=== PATIENT | female | born 1950 ===

== ENCOUNTER 2016-07-15 17:29 | Emergency (ER) | payer SELFPAY ==
[2016-07-15 17:43] VITALS: TEMP 97.3
[2016-07-15 18:48] LABS: RBC URINE 2 /hpf (0-3); TRANSITIONAL EPITHIAL < 1 /hpf (0-3); URINE BACTERIA RARE (<OCC); URINE BILIRUBIN NEGATIVE (NEGATIVE); URINE BLOOD NEGATIVE (NEGATIVE); URINE COLOR Yellow (YELLOW); URINE GLUCOSE (UA) 3+ mg/dL (Normal); URINE KETONE NEGATIVE (NEGATIVE); URINE LEUKOCYTE ESTERASE 1+ Leu/uL (Negative); URINE PROTEIN NEGATIVE (NEGATIVE); URINE UROBILINOGEN NORMAL mg/dL (0.2-1.0); WBC URINE 7 /hpf (0-5)
--- NOTE | 2016-07-15 19:55 | C.PDOC ---
History Of Present Illness 66 yr old female presents to the ER with complaints of headache and low back pain, gradually developing over the past 8 days. Patient states the pain started after sustaining a mechanical fall, reports slipping and falling backwards on ice and hitting her head. Patient states the pain over lower back is localized and worse with movement. head is intermittent, occipital, " aching ". Patient denies LOC, syncope, denies worse headache of life, visual changes, focal deficits, dizziness, N/V, chest pain, SOB, palpitation, abdominal pain, dysuria, incontinence, saddle anesthesia, denies deformity, weakness, sensory or vascular deficits to B/L UEs and LEs. Ambulate to Ed for evaluation, not in any apparent distress. Time Seen by Provider: 07/15/16 18:14 Chief Complaint (Nursing): Back Pain History Per: Patient History/Exam Limitations: no limitations Onset/Duration Of Symptoms: Gradual (8 days ago) Current Symptoms Are (Timing): Still Present Past Medical History Reviewed: Historical Data, Nursing Documentation, Vital Signs Vital Signs: Last Vital Signs Temp 97.3 F L 07/15/16 17:39 Pulse 108 H 07/15/16 17:39 Resp 20 07/15/16 17:39 BP 124/86 07/15/16 17:39 Pulse Ox 97 07/15/16 20:46 - Medical History PMH: Diabetes, HTN, Hypercholesterolemia, Hyperlipidemia, Kidney Stones Family History: States: No Known Family Hx - Social History Hx Tobacco Use: No Hx Alcohol Use: No Hx Substance Use: No - Immunization History Hx Tetanus Toxoid Vaccination: No Hx Influenza Vaccination: No Hx Pneumococcal Vaccination: No Review Of Systems Except As Marked, All Systems Reviewed And Found Negative. Constitutional: Negative for: Fever Eyes: Negative for: Vision Change Cardiovascular: Negative for: Chest Pain Respiratory: Negative for: Shortness of Breath Gastrointestinal: Negative for: Abdominal Pain Genitourinary: Negative for: Incontinence Musculoskeletal: Positive for: Back Pain (Low back pain ) Neurological: Positive for: Headache. Negative for: Weakness, Numbness Physical Exam - Physical Exam Appears: Well, Non-toxic, No Acute Distress Skin: Warm, Dry, No Rash Head: Atraumatic, Normacephalic, No Tenderness, No Swelling, No Abrasion Eye(s): bilateral: Normal Inspection Ear(s): Bilateral: Normal Nose: Normal Oral Mucosa: Moist Tongue: Normal Appearing Throat: Normal, No Erythema, No Exudate, No Drooling Neck: Normal, Normal ROM, No Midline Cervical Tenderness, No Paracervical Tenderness, No Step Off Deformity, Supple Chest: Symmetrical, No Tenderness Cardiovascular: Rhythm Regular, No Murmur Respiratory: Normal Breath Sounds, No Stridor, No Wheezing Gastrointestinal/Abdominal: Normal Exam, Soft, No Tenderness, No Distention, No Guarding Back: No CVA Tenderness, No Vertebral Tenderness, Decreased ROM (of l-spine due to pain), No Muscle Spasm, Paraspinal Tenderness (Diffuse Lumbar paraspinal tenderness. No ecchymoses, no midline tenderness.) Extremity: Normal ROM, Tenderness (trace ecchymoses over left forearm.), No Deformity, No Swelling Neurological/Psych: Oriented x3, Normal Speech, Normal Cognition, Normal Motor, Normal Sensation, Normal Reflexes ED Course And Treatment O2 Sat by Pulse Oximetry: 97 Pulse Ox Interpretation: Normal - CT Scan/US CT - Cervical Spine Other Rad Studies (CT/US): Read By Radiologist, Radiology Report Reviewed CT/US Interpretation: EXAM: CT Cervical Spine Without Intravenous Contrast. CLINICAL HISTORY: 66 years old, female; Injury or trauma; Fall; Initial encounter; Abrasion. TECHNIQUE: Axial computed tomography images of the cervical spine without intravenous contrast. This CT. exam was performed using one or more of the following dose reduction techniques: automated. exposure control, adjustment of the mA and/or kV according to patient size, and/or use of iterative. reconstruction technique. Coronal and sagittal reformatted images were created and reviewed. EXAM DATE/TIME: Exam ordered 07/15/2016 6:59 PM. COMPARISON: No relevant prior studies available. FINDINGS: Vertebrae: Unremarkable. No acute fracture. Discs/spinal canal/neural foramina: Slight anterior subluxation C4-C5 and C5-C6 both of uncertain. age and etiology. Degenerative disc disease and facet arthritis at multiple levels in the cervical spine. Soft tissues: Unremarkable. Sinuses: Membrane thickening in the maxillary sinuses. Mastoid air cells: Fluid in the mastoid air cells on the right. Lung apices: Unremarkable as visualized. IMPRESSION: No acute fracture. Slight anterior subluxation C4-C5 and C5-C6 both of uncertain age and etiology. Degenerative change CT - Head Other Rad Studies (CT/US): Read By Radiologist, Radiology Report Reviewed CT/US Interpretation: EXAM: CT Head Without Intravenous Contrast. CLINICAL HISTORY: 66 years old, female; Injury or trauma; Fall; Initial encounter; Abrasion; Forehead. TECHNIQUE: Axial computed tomography images of the head/ brain without intravenous contrast. This CT exam. was performed using one or more of the following dose reduction techniques: automated exposure. control, adjustment of the mA and/or kV according to patient size, and/or use of iterative. reconstruction technique. EXAM DATE/TIME: 07/15/2016 6:59 PM. COMPARISON: Prior images are not available for review. Correlation is made with report dated 08/11/13. FINDINGS: Brain: Ventricles are normal in size and configuration. There is no midline shift. There are no intraaxial. or extra- axial mass lesions or areas of hemorrhage. Streak artifact limits evaluation of the. posterior fossa. There are no abnormal fluid collections. Carmona-white differentiation is maintained. Ventricles: See above. Bones: Cranial vault is intact. Soft tissues: unremarkable. Sinuses: There is mild mucoperiosteal thickening in the sinuses. Ears and mastoids: There is an old right mastoidectomy defect. Left middle ear and mastoid are. unremarkable. Orbits: Orbital contents are unremarkable. IMPRESSION: No acute intracranial abnormality CT - Lumbar Spine Other Rad Studies (CT/US): Read By Radiologist, Radiology Report Reviewed CT/US Interpretation: EXAM: CT Lumbar Spine Without Intravenous Contrast. CLINICAL HISTORY: 66 years old, female; Injury or trauma; Fall; Initial encounter; Abrasion. TECHNIQUE: Axial computed tomography images of the lumbar spine without intravenous contrast. This CT exam. was performed using one or more of the following dose reduction techniques: automated exposure. control, adjustment of the mA and/or kV according to patient size, and/or use of iterative. reconstruction technique. Coronal and sagittal reformatted images were created and reviewed. EXAM DATE/TIME: 07/15/2016 6:59 PM. COMPARISON: There are no prior studies for comparison. FINDINGS: Vertebrae, Discs/spinal canal/neural foramina: 5 lumbar vertebral bodies are normal in height and. alignment. Vertebral bodies and posterior elements are intact. There is mild disc space narrowing. posteriorly T12-L1, L1/L2, L2/L3 and L5/ S1. There is vacuum phenomenon at L5/S1. There is mild. disc bulging at L4/L5 and L5/S1. There degenerative osteophytes at all levels. Sacroiliac joints are. patent. There are no sacral fractures. Bony mineralization is normal. Soft tissues: There are vascular calcifications. There is a fat containing right inguinal hernia. There. are no acute retroperitoneal abnormalities. IMPRESSION : Degenerative change, no fracture Progress Note: On re-evaluation, pt is afebrile, hemodynamiclay stable. NOn- toxic. Ambulatory n ED with stable gait. neurologicaly intact. Imaging review and appears without acute findings. Pt has clinical findings c/w head injury, lower back strain s/p mechanical fall. Pt advised. ref. to f/u with PMD In 2- 3 days for re-eval. return to ED if any worsening or new changes. Medical Decision Making Medical Decision Making: PLAN: * CT - Cervical Spine, Chest, Head, Lumbar Spine * Urinalysis * Tramadol PO * Valium PO Disposition Counseled Patient/Family Regarding: Studies Performed, Diagnosis, Need For Followup, Rx Given - Disposition Referrals: [facility] [Outside] Disposition: HOME/ ROUTINE Disposition Time: 20:47 Condition: STABLE Additional Instructions: Light duty to lower back Take pain medication as prescribed Follow up with PMD in 2-3 days for re-eavluation. Return to ED if any worsening or new changes. Prescriptions: Methocarbamol [Robaxin] 500 mg PO TID #14 tab traMADol [Ultram] 50 mg PO TID #7 tab Instructions: Head Injury (ED), Back Pain (ED) Print Language: CITIZEN OF [place] - Clinical Impression Clinical Impression: Low back strain, Head injury - PA / [employer] SPECIALIST / Resident Statement MD/DO has reviewed & agrees with the documentation as recorded. - Scribe Statement The provider has reviewed the documentation as recorded by the Scribe Nita Harris All medical record entries made by the Keri were at my direction and personally dictated by me. I have reviewed the chart and agree that the record accurately reflects my personal performance of the history, physical exam, medical decision making, and the department course for this patient. I have also personally directed, reviewed, and agree with the discharge instructions and disposition.
--- NOTE | 2016-07-15 20:35 | CT ---
EXAM: CT Head Without Intravenous Contrast. CLINICAL HISTORY: 66 years old, female; Injury or trauma; Fall; Initial encounter; Abrasion; Forehead TECHNIQUE: Axial computed tomography images of the head/brain without intravenous contrast. This CT exam was performed using one or more of the following dose reduction techniques: automated exposure control, adjustment of the mA and/or kV according to patient size, and/or use of iterative reconstruction technique. EXAM DATE/TIME: 07/15/2016 6:59 PM COMPARISON: Prior images are not available for review. Correlation is made with report dated 08/11/13 FINDINGS: Brain: Ventricles are normal in size and configuration. There is no midline shift. There are no intra-axial or extra-axial mass lesions or areas of hemorrhage. Streak artifact limits evaluation of the posterior fossa. There are no abnormal fluid collections. Carmona-white differentiation is maintained. Ventricles: See above. Bones: Cranial vault is intact. Soft tissues: unremarkable Sinuses: There is mild mucoperiosteal thickening in the sinuses Ears and mastoids: There is an old right mastoidectomy defect. Left middle ear and mastoid are unremarkable. Orbits: Orbital contents are unremarkable. IMPRESSION: No acute intracranial abnormality
--- NOTE | 2016-07-15 20:41 | CT ---
EXAM: CT Lumbar Spine Without Intravenous Contrast. CLINICAL HISTORY: 66 years old, female; Injury or trauma; Fall; Initial encounter; Abrasion TECHNIQUE: Axial computed tomography images of the lumbar spine without intravenous contrast. This CT exam was performed using one or more of the following dose reduction techniques: automated exposure control, adjustment of the mA and/or kV according to patient size, and/or use of iterative reconstruction technique. Coronal and sagittal reformatted images were created and reviewed. EXAM DATE/TIME: 07/15/2016 6:59 PM COMPARISON: There are no prior studies for comparison. FINDINGS: Vertebrae, Discs/spinal canal/neural foramina: 5 lumbar vertebral bodies are normal in height and alignment. Vertebral bodies and posterior elements are intact. There is mild disc space narrowing posteriorly T12-L1, L1/L2, L2/L3 and L5/S1. There is vacuum phenomenon at L5/S1. There is mild disc bulging at L4/L5 and L5/S1. There degenerative osteophytes at all levels. Sacroiliac joints are patent. There are no sacral fractures. Bony mineralization is normal. Soft tissues: There are vascular calcifications. There is a fat containing right inguinal hernia. There are no acute retroperitoneal abnormalities. IMPRESSION: Degenerative change, no fracture
[2016-07-15 20:55] VITALS: BP 137/80; PULSE 78; RESP 16
[2016-07-15 20:58] VITALS: O2SAT 97
--- NOTE | 2016-07-16 13:27 | CT ---
PROCEDURE: CT Cervical Spine without contrast HISTORY: <INJURY> COMPARISON: None available. TECHNIQUE: Axial computed tomography images were obtained of the cervical spine without the use of intravenous contrast. Coronal and sagittal reformatted images were created and reviewed. Radiation dose: Total exam DLP = NA. FINDINGS: VERTEBRAE: No acute compression fractures nor retropulsed fragments. Vertebral bodies exhibit relatively normal stature aside from mild multilevel fish-mouth endplate deformities. Straightening of the normal cervical lordosis which may be in part due to patient positioning in the gantry however underlying element of mild muscle spasm may contribute DISCS/SPINAL CANAL/NEURAL FORAMINA: At the C2-C3 level, there is minimal degenerative squaring of the uncovertebral joints. Facets also slightly hypertrophic left greater than right. Central canal and exit foramina are adequate. At the C3-C4 level, no disc herniation or significant disc bulge. Minimal degenerative squaring of the uncovertebral joints. Facets are hypertrophic left greater than right. Left exit foramen is marginal. Right exit foramen is adequate. At the C4-C5 level, there is minor disc degenerative squaring of the uncovertebral joints. Right facet is quite hypertrophic with right-sided foraminal stenosis. Left exit foramen is mildly hypertrophic. PARASPINAL SOFT TISSUES: The prevertebral and paraspinal soft tissues unremarkable. OTHER FINDINGS: Lung apices are clear. No evidence of apical pneumothorax. IMPRESSION: No acute fractures. Minor multilevel degenerative spondylosis of the cervical spine next
== END 2016-07-15 20:54 | disposition home or self-care (01) ==
LOC: C.ER 17:29
DX: S39.012A Strain of muscle, fascia and tendon of lower back, initial encounter (principal); S09.90XA Unspecified injury of head, initial encounter; W00.0XXA Fall on same level due to ice and snow, initial encounter

== ENCOUNTER 2017-04-27 11:15 | Emergency (ER) | payer MEDICARE ==
[2017-04-27] MEDS ORDERED: Sodium Chloride 0.9% 1,000 ML IV ONE (12:03)
[2017-04-27 12:23] LABS: BASO # 0.1 K/uL (0.0-0.2); EOS # 0.1 K/uL (0.0-0.7); EOS % 2.3 % (0.0-4.0); HEMOGLOBIN 12.5 g/dL (11.0-16.0); LYMPH # 1.4 K/uL (1.0-4.3); LYMPH % 27.2 % (20.0-40.0); MEAN CORPUSCULAR HEMOGLOBIN 30.4 pg (27.0-31.0); MEAN CORPUSCULAR HGB CONC 34.2 g/dL (33.0-37.0); MEAN PLATELET VOLUME 10.2 fL (7.2-11.7); MONO # 0.4 K/uL (0.0-0.8); MONO % 8.2 % (0.0-10.0); NEUT # 3.1 K/uL (1.8-7.0); NEUT % 61.3 % (50.0-75.0); RBC 4.11 Mil/uL (3.80-5.20); RED CELL DISTRIBUTION WIDTH 13.9 % (11.5-14.5)
--- NOTE | 2017-04-27 12:28 | C.PDOC ---
History Of Present Illness 66 y/o female presents to ED with complaints of epigastric abdominal pain for 3 days with associated nausea, vomiting and diarrhea. Patient denies fever, chills , recent travel, back pain or any other complaints at this time. Time Seen by Provider: 04/27/17 11:57 Chief Complaint (Nursing): Abdominal Pain History Per: Patient History/Exam Limitations: no limitations Onset/Duration Of Symptoms: Days Current Symptoms Are (Timing): Still Present Location Of Pain/Discomfort: Epigastric Past Medical History Reviewed: Historical Data, Nursing Documentation, Vital Signs Vital Signs: Last Vital Signs Temp 97.7 F 04/27/17 16:54 Pulse 60 04/27/17 16:54 Resp 20 04/27/17 16:54 BP 131/85 04/27/17 16:54 Pulse Ox 100 04/27/17 16:54 - Medical History PMH: Diabetes, HTN, Hypercholesterolemia, Hyperlipidemia, Kidney Stones Surgical History: No Surg Hx Family History: States: No Known Family Hx - Social History Hx Tobacco Use: No Hx Alcohol Use: No Hx Substance Use: No - Immunization History Hx Tetanus Toxoid Vaccination: No Hx Influenza Vaccination: No Hx Pneumococcal Vaccination: No Review Of Systems Constitutional: Negative for: Fever, Chills Gastrointestinal: Positive for: Nausea, Vomiting, Abdominal Pain, Diarrhea Genitourinary: Negative for: Dysuria, Hematuria Musculoskeletal: Negative for: Back Pain Skin: Negative for: Rash Physical Exam - Physical Exam Appears: Non-toxic, No Acute Distress Skin: Normal Color, Warm, Dry, No Rash Head: Atraumatic, Normacephalic Oral Mucosa: Moist Neck: Supple Cardiovascular: Rhythm Regular Respiratory: Normal Breath Sounds, No Rales, No Rhonchi, No Wheezing Gastrointestinal/Abdominal: Soft, Tenderness (Epigastric), No Guarding, No Rebound Back: No CVA Tenderness Extremity: Normal ROM, Capillary Refill (<2 seconds) Neurological/Psych: Oriented x3 ED Course And Treatment - Laboratory Results Result Diagrams: 04/27/17 12:20 04/27/17 12:20 ECG: Interpreted By Me, Viewed By Me ECG Rhythm: Sinus Rhythm Rate From EC (bpm) O2 Sat by Pulse Oximetry: 97 (RA) Pulse Ox Interpretation: Normal Medical Decision Making Medical Decision Making: ro gastrtiris pancreatitis pud - labs imaging pending during ed course pt had pain migration to lower abd. additional ct neg. after ct , pt asking for dc, pain improved. labs unremarkable. advise outpt fu and return precautions Disposition - Disposition Referrals: Lance Brown MD [Staff Provider] - [facility] [Outside] [facility] [Outside] [facility] [Outside] Disposition: HOME/ ROUTINE Disposition Time: 16:15 Condition: STABLE Additional Instructions: please follow up with your doctor/clinic and specialist.return to er with worsening symptoms or concerns. Prescriptions: Famotidine [Pepcid] 20 mg PO DAILY #20 tab Instructions: Acute Abdominal Pain (DC) Forms: [employer] (Malaysian) - Clinical Impression Clinical Impression: Abdominal pain - Scribe Statement The provider has reviewed the documentation as recorded by the Scriblinsey Mo All medical record entries made by the Liliamibe were at my direction and personally dictated by me. I have reviewed the chart and agree that the record accurately reflects my personal performance of the history, physical exam, medical decision making, and the department course for this patient. I have also personally directed, reviewed, and agree with the discharge instructions and disposition.
[2017-04-27 12:30] LABS: INR 1.1
[2017-04-27 12:37] LABS: ALB/GLOB RATIO 1.1 (1.0-2.1); ALBUMIN 3.6 g/dL (3.5-5.0); ALT/SGPT 31 U/L (9-52); AST/SGOT 22 U/L (14-36); BLOOD UREA NITROGEN 11 mg/dL (7-17); CALCIUM 7.8 mg/dl (8.6-10.4); GFR AFRICAN-AMERICAN > 60; GFR NON-AFRICAN AMERICAN > 60; LIPASE 99 U/L (23-300)
[2017-04-27 12:38] LABS: BILIRUBIN,DIRECT 0.3 mg/dL (0.0-0.4)
[2017-04-27 12:42] LABS: SQUAMOUS EPITHIAL 1 /hpf (0-5); URINE BILIRUBIN NEGATIVE (NEGATIVE); URINE BLOOD NEGATIVE (NEGATIVE); URINE CLARITY Clear (Clear); URINE COLOR Yellow (YELLOW); URINE GLUCOSE (UA) 2+ mg/dL (Normal); URINE LEUKOCYTE ESTERASE TRACE Leu/uL (Negative); URINE NITRATE NEGATIVE (NEGATIVE); URINE PROTEIN NEGATIVE (NEGATIVE)
--- NOTE | 2017-04-27 14:06 | US ---
HISTORY: upper abd pain COMPARISON: CT abdomen and pelvis with contrast performed 01/26/17 TECHNIQUE: Sonographic evaluation of the abdomen. FINDINGS: LIVER: Measures 15.7 cm in sagittal dimension. Echogenic liver may be seen in setting of hepatic parenchymal disease or fatty infiltration. No focal hepatic mass identified. The main portal vein appears patent with normal directional flow. No intrahepatic bile duct dilatation. GALLBLADDER: No gallstones. No gallbladder wall thickening. Negative sonographic Patel's sign as assessed by the real estate sales manager. COMMON BILE DUCT: Measures 4 mm. PANCREAS: Not well visualized. RIGHT KIDNEY: Measures 12.2 x 5.8 x 6.1cm. Mild hydronephrosis versus parapelvic cysts. No obstructing calculus identified. 1.3 x 1.4 x 1.4 cm midpole cyst. LEFT KIDNEY: Measures 12.2 x 6.8 x 6.4cm. Mild hydronephrosis versus parapelvic cysts. No obstructing calculus evident. SPLEEN: Measures approximately 10.2 cm. AORTA: Limited views appear unremarkable. IVC: Limited views appear unremarkable. OTHER FINDINGS: None. IMPRESSION: Mild bilateral hydronephrosis versus parapelvic cysts. 1.4 cm right renal cyst, midpole. Echogenic liver may be seen in setting of hepatic parenchymal disease or fatty infiltration.
[2017-04-27] MEDS ORDERED: Iodixanol 320 MG/ML 100 ML BOTTLE IV ONE (15:35)
--- NOTE | 2017-04-27 16:11 | CT ---
PROCEDURE: CT Abdomen and Pelvis with contrast HISTORY: abd pain COMPARISON: 03/28/2017 CT abdomen and pelvis TECHNIQUE: Contrast dose: 100 mL Visipaque 320 Radiation dose: Total exam DLP = 1025 mGy-cm. This CT exam was performed using one or more of the following dose reduction techniques: Automated exposure control, adjustment of the mA and/or kV according to patient size, and/or use of iterative reconstruction technique. FINDINGS: LOWER THORAX: Left basal in lingular interval pleural thickening LIVER: Unremarkable. No gross lesion or ductal dilatation. GALLBLADDER AND BILE DUCTS: Unremarkable. PANCREAS: Unremarkable. No gross lesion or ductal dilatation. SPLEEN: Unremarkable. ADRENALS: Unremarkable. No mass. KIDNEYS AND URETERS: Symmetrical renal function appear No hydronephrosis. No solid appearing mass. Bilateral parapelvic renal cysts similar-appearing right lower renal pole cortical 1.6 cm cystic appearing mass in similar to 01/26/2017 VASCULATURE: Unremarkable. No aortic aneurysm. BOWEL: Rectosigmoid redundant colon. No obstruction. No gross mural thickening. No diverticular light is seen no prominent diverticulosis noted. Few scattered diverticuli not excluded APPENDIX: Normal appendix. PERITONEUM: Unremarkable. No free fluid. No free air. LYMPH NODES: Unremarkable. No enlarged lymph nodes. BLADDER: Unremarkable. REPRODUCTIVE: Postmenopausal appearing uterus. Ovaries within normal limits- appearing dystrophic calcification of the left ovary noted -similar-appearing BONES: No acute fracture. Thoraco lumbar spondylosis OTHER FINDINGS: Anterior umbilical fat only containing hernia (4.2 x 4.4 cm) - umbilical neck 1.5 cm wide Smaller bilateral fat only containing groin hernias right larger than left ; 2.5 x 1.6 cm on the right -similar-appearing IMPRESSION: No acute abdominal bowel appreciated. No mechanical obstruction appreciated Fat only containing hernias -similar-appearing - largest is umbilical ; 2nd largest right groin Similar bilateral parapelvic renal cysts. Right lower renal pole intra cortical benign-appearing cyst -also similar appear .
[2017-04-27 16:54] VITALS: BP 131/85; PULSE 60; RESP 20; TEMP 97.7
[2017-04-27 17:44] VITALS: O2SAT 97
== END 2017-04-27 16:54 | disposition home or self-care (01) ==
LOC: C.ER 11:15
DX: R10.13 Epigastric pain (principal)
CPT/HCPCS: 74177; 76700; 80053; 81001; 82248; 83690; 84484; 85025; 85610; 85730; 96361; 96374; 96375; 99284; C9113; J2405; J7040; Q9967

== ENCOUNTER 2017-05-19 15:09 | Inpatient (IN) | payer MEDICARE ==
--- NOTE | 2017-05-19 16:17 | C.PDOC ---
History Of Present Illness 66 year old female presents to the ED c/o pain in her left upper arm radiating into her chest. Pain has been intermittent and shes describes it as aching and occasionally very intense. Patient states she is not working at this time, but even when she exerts herself at home the pain does not change. Patient denies SOB, nausea, vomit, diaphoresis. Patient states she has never had this type of pain before. She did not take any medication at home. Time Seen by Provider: 05/19/17 15:52 Chief Complaint (Nursing): Chest Pain History Per: Patient History/Exam Limitations: no limitations Onset/Duration Of Symptoms: Days Current Symptoms Are (Timing): Still Present Quality: Aching Modifying Factors: None Exacerbating Factors: None Alleviating Factors: None Recent travel outside of the [place]: No Additional History Per: Patient Past Medical History Reviewed: Historical Data, Nursing Documentation, Vital Signs Vital Signs: Last Vital Signs Temp 98.6 F 05/19/17 15:40 Pulse 65 05/19/17 17:53 Resp 18 05/19/17 17:53 BP 118/63 05/19/17 17:53 Pulse Ox 99 05/19/17 17:53 - Medical History PMH: Diabetes, HTN, Hypercholesterolemia, Hyperlipidemia, Kidney Stones Surgical History: No Surg Hx Family History: States: Unknown Family Hx - Social History Hx Tobacco Use: No Hx Alcohol Use: No Hx Substance Use: No - Immunization History Hx Tetanus Toxoid Vaccination: No Hx Influenza Vaccination: Yes Hx Pneumococcal Vaccination: Yes Review Of Systems Constitutional: Negative for: Fever, Chills Cardiovascular: Positive for: Chest Pain. Negative for: Palpitations Respiratory: Negative for: Cough, Shortness of Breath Gastrointestinal: Negative for: Nausea, Vomiting, Abdominal Pain Musculoskeletal: Positive for: Arm Pain. Negative for: Back Pain Skin: Negative for: Rash Neurological: Negative for: Weakness, Numbness, Headache, Dizziness Physical Exam - Physical Exam Appears: Non-toxic, No Acute Distress Skin: Normal Color, Warm, Dry Head: Atraumatic, Normacephalic Eye(s): bilateral: Normal Inspection Nose: No Discharge, No Deformity Oral Mucosa: Moist Neck: Normal ROM, Supple Chest: Symmetrical, Tenderness (left pectoralis muscle on palpation), Other ( breast exam in normal) Cardiovascular: Rhythm Regular, No Murmur Respiratory: Normal Breath Sounds, No Rales, No Rhonchi, No Wheezing Gastrointestinal/Abdominal: Soft, No Tenderness, No Guarding, No Rebound Extremity: Normal ROM, No Pedal Edema, No Calf Tenderness, No Deformity, No Swelling Neurological/Psych: Oriented x3, Normal Speech, Normal Cognition Gait: Steady ED Course And Treatment - Laboratory Results Result Diagrams: 05/19/17 16:36 05/19/17 16:16 Lab Interpretation: Abnormal (BUN 36 Cr 2.6 elevated when cocmpared to priors.) ECG: Interpreted By Me ECG Rhythm: Sinus Rhythm ECG Interpretation: Normal O2 Sat by Pulse Oximetry: 99 (On RA) Pulse Ox Interpretation: Normal - Radiology CXR: Viewed By Me, Read By Radiologist CXR Interpretation: Yes: No Acute Disease Reevaluation Time: 18:24 Reassessment Condition: Unchanged - Physician Consult Information Time Consulting Physician Contacted: 18:24 Physician Contacted: Yoana Cox Outcome Of Conversation: Patient to be admitted to telemetry for chest pain and new onset renal insufficiency Medical Decision Making Medical Decision Making: Impression : upper arm and chest pain Plan: * EKG * Labs * CXR Disposition - Disposition Disposition: HOSPITALIZED Disposition Time: 18:24 Condition: STABLE - POA Present On Arrival: None - Clinical Impression Clinical Impression: Chest pain, Renal insufficiency - Scribe Statement The provider has reviewed the documentation as recorded by the Scribe Vasyl Escudero All medical record entries made by the Scribe were at my direction and personally dictated by me. I have reviewed the chart and agree that the record accurately reflects my personal performance of the history, physical exam, medical decision making, and the department course for this patient. I have also personally directed, reviewed, and agree with the discharge instructions and disposition.
[2017-05-19 16:37] LABS: ALBUMIN 3.4 g/dL (3.5-5.0); CALCIUM 8.2 mg/dl (8.6-10.4)
[2017-05-19 16:42] LABS: BASO # 0.1 K/uL (0.0-0.2); BASO % 1.2 % (0.0-2.0); EOS # 0.1 K/uL (0.0-0.7); EOS % 1.3 % (0.0-4.0); HEMOGLOBIN 12.5 g/dL (11.0-16.0); LYMPH # 1.9 K/uL (1.0-4.3); LYMPH % 25.1 % (20.0-40.0); MEAN CELL VOLUME 90.4 fL (81.0-99.0); MEAN CORPUSCULAR HEMOGLOBIN 29.8 pg (27.0-31.0); MEAN PLATELET VOLUME 9.9 fL (7.2-11.7); MONO # 0.4 K/uL (0.0-0.8); MONO % 5.5 % (0.0-10.0); NEUT % 66.9 % (50.0-75.0); RBC 4.18 Mil/uL (3.80-5.20); RED CELL DISTRIBUTION WIDTH 14.2 % (11.5-14.5); WHITE BLOOD COUNT 7.5 K/uL (4.8-10.8)
[2017-05-19 16:46] LABS: TROPONIN I 0.029 ng/mL (0.00-0.120)
--- NOTE | 2017-05-19 17:38 | RAD ---
PROCEDURE: CHEST RADIOGRAPH, 1 VIEW HISTORY: chest pain COMPARISON: 08/11/2013 FINDINGS: LUNGS: Clear. PLEURA: No pneumothorax or pleural fluid seen. CARDIOVASCULAR: Normal. OSSEOUS STRUCTURES: No significant abnormalities. VISUALIZED UPPER ABDOMEN: Normal. OTHER FINDINGS: None. IMPRESSION: No active disease.
--- NOTE | 2017-05-19 20:42 | CP.PCM.HP ---
History of Present Illness - History of Present Illness History of Present Illness: 66 year old female presents to the ED c/o pain in her left upper arm radiating into her chest. Pain has been intermittent and shes describes it as aching and occasionally very intense. Patient states when she exerts herself at home the pain does not change. Patient denies SOB, nausea, vomit, diaphoresis. Patient states she has never had this type of pain before. She did not take any medication at home. Time Seen by Provider: 05/19/17 15:52 Present on Admission - Present on Admission Any Indicators Present on Admission: No Review of Systems - Constitutional Constitutional: absent: As Per HPI, Anorexia, Chills, Daytime Sleepiness, Excessive Sweating, Fatigue, Fever, Frequent Falls, Headache, Increased Appetite , Lethargy, Malaise, Night Sweats, Snoring, Sleep Apnea, Weight Gain, Weight Loss, Weakness, Other - EENT Eyes: absent: As Per HPI, Blind Spots, Blurred Vision, Change in Vision, Decreased Night Vision, Diplopia, Discharge, Dry Eye, Exophthalmos, Floaters, Irritation, Itchy Eyes, Loss of Peripheral Vision, Pain, Photophobia, Requires Corrective Lenses, Sees Flashes, Spots in Vision, Tunnel Vision, Other Visual Disturbances, Loss of Vision, Other Ears: absent: As Per HPI, Decreased Hearing, Ear Discharge, Ear Pain, Tinnitus, Abnormal Hearing, Disequilibrium, Dizziness, Other Nose/Mouth/Throat: absent: As Per HPI, Epistaxis, Nasal Congestion, Nasal Discharge, Nasal Obstruction, Nasal Trauma, Nose Pain, Post Nasal Drip, Sinus Pain, Sinus Pressure, Bleeding Gums, Change in Voice, Dental Pain, Dry Mouth, Dysphagia, Halitosis, Hoarsness, Lip Swelling, Mouth Lesions, Mouth Pain, Odynophagia, Sore Throat, Throat Swelling, Tongue Swelling, Facial Pain, Neck Pain, Neck Mass, Other - Breasts Breasts: absent: As Per HPI, Change in Shape, Mass, Pain, Nipple Discharge, Nipple Inversion, Skin Changes, Swelling, Other - Cardiovascular Cardiovascular: Chest Pain at Rest, Chest Pain with Activity, Dyspnea, Lightheadedness, Orthopnea, Palpitations - Respiratory Respiratory: absent: As Per HPI, Cough, Dyspnea, Hemoptysis, Dyspnea on Exertion , Wheezing, Snoring, Stridor, Pain on Inspiration, Chest Congestion, Excessive Mucous Production, Change in Mucous Color, Pain with Coughing, Other - Gastrointestinal Gastrointestinal: absent: As Per HPI, Abdominal Pain, Belching, Bloating, Change in Bowel Habits, Change in Stool Character, Coffee Ground Emesis, Constipation, Cramping, Diarrhea, Dyspepsia, Dysphagia, Early Satiety, Excessive Flatus, Fecal Incontinence, Heartburn, Hematemesis, Hematochezia, Loose Stools, Melena, Nausea, Odynophagia, Temesmus, Vomiting, Other - Genitourinary Genitourinary: absent: As Per HPI, Change in Urinary Stream, Difficulty Urinating, Dysuria, Flank Pain, Hematuria, Pyuria, Nocturia, Urinary Incontinence, Urinary Frequency, Urinary Hesitance, Urinary Urgency, Voiding Freq/Small Amts, Freq UTI, Hx Renal/Bladder Calculi, Hx /Renal Surgery, Bladder Distension, Other - Musculoskeletal Musculoskeletal: absent: As Per HPI, Abnormal Gait, Arthralgias, Atrophy, Back Pain, Deformity, Joint Swelling, Limited Range of Motion, Loss of Height, Muscle Cramps, Muscle Weakness, Myalgias, Neck Pain, Numbness, Radiating Pain into Limb, Stiffness, Tingling, Other - Integumentary Integumentary: absent: As Per HPI, Acne, Alopecia, Bleeding Lesions, Change in Hair, Change in Nails, Change in Pigmentation, Changing Lesions, Dry Skin, Erythema, Furuncle, Hirsutism, Lesions, New Lesions, Non-Healing Lesions, Photosensitivity, Pruritus, Rash, Skin Pain, Skin Ulcer, Sores, Striae, Swelling , Unusual Bruising, Wounds, Jaundice, Other - Neurological Neurological: absent: As Per HPI, Abnormal Gait, Abnormal Hearing, Abnormal Movements, Abnormal Speech, Behavioral Changes, Burning Sensations, Confusion, Convulsions, Disequilibrium, Dizziness, Numbness, Focal Weakness, Frequent Falls , Headaches, Lack of Coordination, Loss of Vision, Memory Loss, Paresthesias, Radicular Pain, Restless Legs, Sensory Deficit, Syncope, Tingling, Tremor, Vertigo, Weakness, Other Visual Disturbances, Other - Psychiatric Psychiatric: absent: As Per HPI, Abnormal Sleep Pattern, Anhedonia, Anxiety, Auditory Hallucinations, Behavioral Changes, Change in Appetite, Change in Libido, Confusion, Depression, Difficulty Concentrating, Hallucinations, Homicidal Ideation, Hopelessness, Irritability, Memory Loss, Mood Swings, Panic Attacks, Paranoia, Suicidal Ideation, Visual Hallucinations, Tactile Hallucinations, Other - Endocrine Endocrine: absent: As Per HPI, Change in Body Appearance, Change in Libido, Cold Intolorance, Deepening of Voice, Excessive Sweating, Fatigue, Flushing, Heat Intolorance, Increase in Ring/Shoe/Hat Size, Palpitations, Polydipsia, Polyphagia, Polyuria, Other Past Patient History - Past Medical History & Family History Past Medical History?: Yes - Past Social History Smoking Status: Never Smoked - CARDIAC Hx Hypercholesterolemia: Yes Hx Hypertension: Yes - PULMONARY Hx Respiratory Disorders: No - NEUROLOGICAL Hx Neurological Disorder: No Other/Comment: viral meningitis 2001. - HEENT Hx HEENT Problems: No Other/Comment: ear surgery post infection twice - RENAL Hx Kidney Stones: Yes - ENDOCRINE/METABOLIC Hx Endocrine Disorders: Yes Hx Diabetes Mellitus Type 2: Yes - HEMATOLOGICAL/ONCOLOGICAL Hx Blood Disorders: No - INTEGUMENTARY Hx Dermatological Problems: No - MUSCULOSKELETAL/RHEUMATOLOGICAL Hx Musculoskeletal Disorders: No Hx Falls: No - GASTROINTESTINAL Hx Gastrointestinal Disorders: No - GENITOURINARY/GYNECOLOGICAL Hx Genitourinary Disorders: No - PSYCHIATRIC Hx Substance Use: No - SURGICAL HISTORY Hx Surgeries: No Other/Comment: accidentally stabbed self with kitchen knife trying to open a can had surgery to remove metal pieces in 1998. had ear surger after infection twice in - ANESTHESIA Hx Anesthesia: Yes Hx Anesthesia Reactions: No Hx Malignant Hyperthermia: No Meds Allergies/Adverse Reactions: Allergies Allergy/AdvReac Type Severity Reaction Status Date / Time No Known Allergies Allergy Verified 05/19/17 15:43 Physical Exam - Head Exam Head Exam: ATRAUMATIC - Eye Exam Eye Exam: EOMI, Normal appearance, PERRL Pupil Exam: NORMAL ACCOMODATION, PERRL - ENT Exam ENT Exam: Mucous Membranes Moist, Normal Exam - Neck Exam Neck exam: Positive for: Normal Inspection - Respiratory Exam Respiratory Exam: Clear to Auscultation Bilateral, NORMAL BREATHING PATTERN - Cardiovascular Exam Cardiovascular Exam: +S1, +S2, +S4 - GI/Abdominal Exam GI & Abdominal Exam: Normal Bowel Sounds, Soft. absent: Tenderness - Extremities Exam Extremities exam: Positive for: normal inspection. Negative for: calf tenderness - Back Exam Back exam: NORMAL INSPECTION - Neurological Exam Neurological exam: Alert, CN II-XII Intact, Normal Gait, Oriented x3, Reflexes Normal - Skin Skin Exam: Dry, Intact, Normal Color, Warm Results - Vital Signs Recent Vital Signs: Last Vital Signs Temp 98.6 F 05/19/17 15:40 Pulse 65 05/19/17 17:53 Resp 18 05/19/17 17:53 BP 118/63 05/19/17 17:53 Pulse Ox 99 05/19/17 18:33 - Labs Result Diagrams: 05/19/17 16:36 05/19/17 16:16 Labs: Laboratory Results - last 24 hr 05/19/17 05/19/17 16:16 16:36 WBC 7.5 RBC 4.18 Hgb 12.5 Hct 37.8 MCV 90.4 MCH 29.8 MCHC 33.0 RDW 14.2 Plt Count 259 MPV 9.9 Neut % (Auto) 66.9 Lymph % (Auto) 25.1 Dubois % (Auto) 5.5 Eos % (Auto) 1.3 Baso % (Auto) 1.2 Neut # 5.0 Lymph # 1.9 Dubois # 0.4 Eos # 0.1 Baso # 0.1 Sodium 133 Potassium 4.0 Chloride 102 Carbon Dioxide 22 Anion Gap 14 BUN 36 H Creatinine 2.6 H Est GFR ( Amer) 22 Est GFR (Non-Af Amer) 18 Random Glucose 115 H Calcium 8.2 L Total Bilirubin 0.8 AST 28 ALT 18 Alkaline Phosphatase 53 Troponin I 0.0290 Total Protein 6.8 Albumin 3.4 L Globulin 3.4 Albumin/Globulin Ratio 1.0 Assessment & Plan (1) Chest pain Status: Acute Comment: cardiac w/u (2) Renal insufficiency Status: Acute Comment: iv fluids
[2017-05-19 21:43] LABS: CK-MB 0.36 ng/mL (0.0-3.38)
[2017-05-19] MEDS: (Novolin R) Insulin Human Regular 100 units/ml vial SC SCH (22:05)
[2017-05-20 06:05] LABS: BASO # 0.1 K/uL (0.0-0.2); BASO % 0.8 % (0.0-2.0); EOS # 0.2 K/uL (0.0-0.7); EOS % 2.1 % (0.0-4.0); HEMOGLOBIN 11.9 g/dL (11.0-16.0); LYMPH # 2.6 K/uL (1.0-4.3); LYMPH % 34.2 % (20.0-40.0); MEAN CELL VOLUME 89.5 fL (81.0-99.0); MEAN CORPUSCULAR HEMOGLOBIN 30.1 pg (27.0-31.0); MEAN CORPUSCULAR HGB CONC 33.6 g/dL (33.0-37.0); MEAN PLATELET VOLUME 10.6 fL (7.2-11.7); MONO # 0.5 K/uL (0.0-0.8); MONO % 6.9 % (0.0-10.0); NEUT # 4.3 K/uL (1.8-7.0); NRBC % 0.2 % (0.0-2.0); RBC 3.97 Mil/uL (3.80-5.20); RED CELL DISTRIBUTION WIDTH 13.7 % (11.5-14.5); WHITE BLOOD COUNT 7.6 K/uL (4.8-10.8)
[2017-05-20 06:26] LABS: ALB/GLOB RATIO 1.1 (1.0-2.1); ALBUMIN 3.4 g/dL (3.5-5.0); ALT/SGPT 23 U/L (9-52); AST/SGOT 19 U/L (14-36); BLOOD UREA NITROGEN 14 mg/dL (7-17); CALCIUM 9.1 mg/dl (8.6-10.4); GFR AFRICAN-AMERICAN > 60; GFR NON-AFRICAN AMERICAN > 60
[2017-05-20 06:33] LABS: CK-MB 0.29 ng/mL (0.0-3.38)
[2017-05-20] MEDS: (Novolin R) Insulin Human Regular 100 units/ml vial SC SCH ×3 (08:13→16:59)
[2017-05-20 08:20] VITALS: RESP 20
[2017-05-20] MEDS: Enoxaparin 40 mg Syringe SC SCH (11:00)
--- NOTE | 2017-05-20 12:38 | CARD ---
APPROVED REPORT EKG Measurement Heart [id number] <Conclusion> Normal sinus rhythm Normal ECG
--- NOTE | 2017-05-20 13:40 | CP.PCM.PN ---
Subjective - Date & Time of Evaluation Date of Evaluation: 05/20/17 Time of Evaluation: 13:39 - Subjective Subjective: CHIEF COMPLAINTS TODAY : NO FURTHER CP ROS. HEENT : N. Resp : No cough, wheezing ,pleuritic CP ,or hemoptysis Cardio : No anginal CP, PND, orthopnea, palpitation GI : No abd.pain, n/v ,diarrhea or GI bleeding . [employer] COORDINATOR : No headache, vertigo, focal deficit. Musculoskel : No joint swelling , Derm : No rash Psych : Normal affect. Ext : No swelling ,calf pain PE. Pt. is alert awake in no distress. V.S As noted in the chart Head ,ear nose,throat and eyes : Normal. Neck : Supple with normal carotids. Lungs: Clear air entry. Heart : S1 & S2 normal with S4. No murmur. Abd : Soft non tender with normal bowel sounds. Neuro : Moves all ext. with no localized deficit. Ext : No edema with intact pulses.Non tender calves Derm : No rashes or decubitus ulcer. LABS/RADIOLOGY: CHECK TNI ASSESSMENT/PLAN : CONT OBSERVATION Objective - Vital Signs/Intake and Output Vital Signs (last 24 hours): Temp Pulse Resp BP Pulse Ox 97.5 F L 67 20 129/85 96 05/20/17 07:19 05/20/17 12:11 05/20/17 07:19 05/20/17 11:00 05/20/17 07:19 - Medications Medications: Current Medications Aspirin (Aspirin Chewable) 81 mg PO DAILY [facility] Last Admin: 05/20/17 11:00 Dose: 81 mg Enoxaparin Sodium (Lovenox) 40 mg SC DAILY [facility] Last Admin: 05/20/17 11:00 Dose: 40 mg Famotidine (Pepcid) 20 mg PO DAILY [facility] Last Admin: 05/20/17 11:00 Dose: 20 mg Insulin Human Regular (Novolin R) 0 unit SC [facility] PRN Reason: Protocol Last Admin: 05/20/17 11:49 Dose: Not Given Lisinopril (Zestril) 10 mg PO DAILY [facility] Last Admin: 05/20/17 11:00 Dose: 10 mg Pneumococcal Polyvalent Vaccine (Pneumovax 23 Vaccine) 0.5 ml IM .ONCE ONE Stop: 05/22/17 10:01 Rosuvastatin Calcium (Crestor) 20 mg PO [facility] Last Admin: 05/19/17 22:05 Dose: 20 mg - Labs Labs: 05/20/17 06:01 05/20/17 06:01 Assessment and Plan (1) Chest pain Status: Acute (2) Renal insufficiency Status: Acute
[2017-05-20 14:40] LABS: CK-MB 0.49 ng/mL (0.0-3.38)
--- NOTE | 2017-05-20 20:54 | CARD ---
APPROVED REPORT EKG Measurement Heart [id number] <Conclusion> Normal sinus rhythm Normal ECG
[2017-05-21] MEDS: (Novolin R) Insulin Human Regular 100 units/ml vial SC SCH ×2 (07:58→12:30)
[2017-05-21] MEDS: Enoxaparin 40 mg Syringe SC SCH (10:10)
[2017-05-21 12:48] LABS: BLOOD UREA NITROGEN 16 mg/dL (7-17); CALCIUM 9.6 mg/dl (8.6-10.4); GFR AFRICAN-AMERICAN > 60; GFR NON-AFRICAN AMERICAN > 60
[2017-05-21 12:49] LABS: BASO # 0.1 K/uL (0.0-0.2); BASO % 0.7 % (0.0-2.0); EOS # 0.1 K/uL (0.0-0.7); EOS % 1.7 % (0.0-4.0); HEMOGLOBIN 12.6 g/dL (11.0-16.0); LYMPH # 1.7 K/uL (1.0-4.3); LYMPH % 25.5 % (20.0-40.0); MEAN CELL VOLUME 89.2 fL (81.0-99.0); MEAN CORPUSCULAR HEMOGLOBIN 30.8 pg (27.0-31.0); MEAN CORPUSCULAR HGB CONC 34.5 g/dL (33.0-37.0); MEAN PLATELET VOLUME 11.1 fL (7.2-11.7); MONO # 0.4 K/uL (0.0-0.8); MONO % 5.5 % (0.0-10.0); NEUT # 4.5 K/uL (1.8-7.0); NEUT % 66.6 % (50.0-75.0); NRBC % 0.1 % (0.0-2.0); RBC 4.11 Mil/uL (3.80-5.20); RED CELL DISTRIBUTION WIDTH 13.6 % (11.5-14.5); WHITE BLOOD COUNT 6.8 K/uL (4.8-10.8)
--- NOTE | 2017-05-21 13:41 | CP.PCM.DIS ---
Provider - Provider Date of Admission: 05/19/17 18:20 Attending physician: Yoana Cox MD Time Spent in preparation of Discharge (in minutes): 35 Diagnosis - Discharge Diagnosis (1) Chest pain Status: Acute (2) Renal insufficiency Status: Acute Hospital Course - Lab Results Lab Results: Most Recent Lab Values WBC 6.8 K/uL (4.8-10.8) 05/21/17 12:22 RBC 4.11 Mil/uL (3.80-5.20) 05/21/17 12:22 Hgb 12.6 g/dL (11.0-16.0) 05/21/17 12:22 Hct 36.7 % (34.0-47.0) 05/21/17 12:22 MCV 89.2 fL (81.0-99.0) 05/21/17 12:22 MCH 30.8 pg (27.0-31.0) 05/21/17 12:22 MCHC 34.5 g/dL (33.0-37.0) 05/21/17 12:22 RDW 13.6 % (11.5-14.5) 05/21/17 12:22 Plt Count 240 K/uL (130-400) 05/21/17 12:22 MPV 11.1 fL (7.2-11.7) 05/21/17 12:22 Neut % (Auto) 66.6 % (50.0-75.0) 05/21/17 12:22 Lymph % (Auto) 25.5 % (20.0-40.0) 05/21/17 12:22 Hickman % (Auto) 5.5 % (0.0-10.0) 05/21/17 12:22 Eos % (Auto) 1.7 % (0.0-4.0) 05/21/17 12:22 Baso % (Auto) 0.7 % (0.0-2.0) 05/21/17 12:22 Neut # 4.5 K/uL (1.8-7.0) 05/21/17 12:22 Lymph # 1.7 K/uL (1.0-4.3) 05/21/17 12:22 Hickman # 0.4 K/uL (0.0-0.8) 05/21/17 12:22 Eos # 0.1 K/uL (0.0-0.7) 05/21/17 12:22 Baso # 0.1 K/uL (0.0-0.2) 05/21/17 12:22 Sodium 135 mmol/L (132-148) 05/21/17 12:22 Potassium 4.0 mmol/L (3.6-5.2) 05/21/17 12:22 Chloride 102 mmol/L (98-107) 05/21/17 12:22 Carbon Dioxide 24 mmol/L (22-30) 05/21/17 12:22 Anion Gap 13 (10-20) 05/21/17 12:22 BUN 16 mg/dL (7-17) 05/21/17 12:22 Creatinine 0.5 mg/dL (0.7-1.2) L 05/21/17 12:22 Est GFR ( Amer) > 60 05/21/17 12:22 Est GFR (Non-Af Amer) > 60 05/21/17 12:22 POC Glucose (mg/dL) 119 mg/dL (65-110) H 05/21/17 11:56 Random Glucose 125 mg/dL (65-105) H 05/21/17 12:22 Calcium 9.6 mg/dl (8.6-10.4) 05/21/17 12:22 Total Bilirubin 0.5 mg/dL (0.2-1.3) 05/20/17 06:01 AST 19 U/L (14-36) 05/20/17 06:01 ALT 23 U/L (9-52) 05/20/17 06:01 Alkaline Phosphatase 81 U/L (38-126) 05/20/17 06:01 Total Creatine Kinase 49 U/L (30-135) 05/20/17 13:59 CK-MB (Mass) 0.49 ng/mL (0.0-3.38) 05/20/17 13:59 Troponin I < 0.0120 ng/mL (0.00-0.120) 05/20/17 13:59 Total Protein 6.4 g/dL (6.3-8.3) 05/20/17 06:01 Albumin 3.4 g/dL (3.5-5.0) L 05/20/17 06:01 Globulin 3.0 gm/dL (2.2-3.9) 05/20/17 06:01 Albumin/Globulin Ratio 1.1 (1.0-2.1) 05/20/17 06:01 - Hospital Course Hospital Course: 6 year old female presents to the ED c/o pain in her left upper arm radiating into her chest. Pain has been intermittent and shes describes it as aching and occasionally very intense. Patient states when she exerts herself at home the pain does not change. Patient denies SOB, nausea, vomit, diaphoresis. Patient states she has never had this type of pain before. She did not take any medication at home. TNI NEG TIMES 3 . PT WAS ANXIOUS TO GO HOME WILL D/C AND CONT, OUT PT CARDIAC W/U RX ASA Discharge Exam - Head Exam Head Exam: ATRAUMATIC Discharge Plan - Follow Up Plan Condition: STABLE Disposition: HOME/ ROUTINE
[2017-05-21 16:20] VITALS: BP 113/77; PULSE 79; TEMP 99; O2SAT 96
[2017-05-22] MEDS ORDERED: Pneumococcal 23-Valent Vaccine IM ONE (10:00)
== END 2017-05-21 17:29 | disposition home or self-care (01) | DRG 313 ==
LOC: C.ER 15:09 → C.9E 18:20 → C.6T 22:45
PROVIDERS: ADMIT Internal Medicine Cardiovascular Disease; ATTEND Internal Medicine Cardiovascular Disease
DX: R07.9 Chest pain, unspecified (principal); E11.9 Type 2 diabetes mellitus without complications; N28.9 Disorder of kidney and ureter, unspecified; E78.00 Pure hypercholesterolemia, unspecified; I10 Essential (primary) hypertension; Z79.4 Long term (current) use of insulin

== ENCOUNTER 2017-07-28 06:07 | Emergency (ER) | payer MEDICARE ==
[2017-07-28 06:17] VITALS: O2SAT 98
--- NOTE | 2017-07-28 07:30 | C.PDOC ---
History Of Present Illness 67 y/o female presents to ED with complaints of right sided back pain, buttock pain and abdominal pain for 4 days. Patient states she has taken Motrin with no relief which prompted visit to ED and currently denies fever, chills, nausea, vomiting, diarrhea, dysuria, hematuria or any other complaints at this time. Time Seen by Provider: 07/28/17 07:18 Chief Complaint (Nursing): Back Pain History Per: Patient History/Exam Limitations: no limitations Onset/Duration Of Symptoms: Days Quality Of Discomfort: "Pain" Past Medical History Reviewed: Historical Data, Nursing Documentation, Vital Signs Vital Signs: Last Vital Signs Temp 97.7 F 07/28/17 09:30 Pulse 62 07/28/17 09:30 Resp 16 07/28/17 09:30 BP 106/65 07/28/17 09:30 Pulse Ox 98 07/28/17 10:13 - Medical History PMH: Diabetes, HTN, Hypercholesterolemia, Hyperlipidemia, Kidney Stones, Chronic Kidney Disease Surgical History: No Surg Hx Family History: States: No Known Family Hx - Social History Hx Tobacco Use: No Hx Alcohol Use: No Hx Substance Use: No - Immunization History Hx Tetanus Toxoid Vaccination: Yes Hx Influenza Vaccination: Yes Hx Pneumococcal Vaccination: Yes Review Of Systems Constitutional: Negative for: Fever, Chills Cardiovascular: Negative for: Chest Pain Gastrointestinal: Positive for: Abdominal Pain. Negative for: Nausea, Vomiting , Diarrhea Genitourinary: Negative for: Dysuria, Hematuria Musculoskeletal: Positive for: Back Pain Physical Exam - Physical Exam Appears: Non-toxic, No Acute Distress Skin: Warm, Dry, No Rash Head: Atraumatic, Normacephalic Oral Mucosa: Moist Neck: Normal ROM, Supple Cardiovascular: Rhythm Regular Respiratory: Normal Breath Sounds, No Rales, No Rhonchi, No Wheezing Gastrointestinal/Abdominal: Soft, Tenderness (lower abdomen), No Guarding, No Rebound Back: No CVA Tenderness, Paraspinal Tenderness, No Straight Leg Raising Extremity: Normal ROM, No Calf Tenderness, Capillary Refill (<2 seconds) Neurological/Psych: Oriented x3, Normal Speech, Normal Motor, Normal Sensation Gait: Steady ED Course And Treatment - Laboratory Results Result Diagrams: 07/28/17 07:49 07/28/17 07:49 Lab Interpretation: Normal O2 Sat by Pulse Oximetry: 98 (RA) Pulse Ox Interpretation: Normal - CT Scan/US No standard instances Other Rad Studies (CT/US): Read By Radiologist, Radiology Report Reviewed CT/US Interpretation: FINDINGS: LOWER THORAX: Basilar atelectasis. Heart size normal. Coronary arterial and valvular calcifications. LIVER: Scattered hepatic punctate calcification. No gross lesion or ductal dilatation. GALLBLADDER AND BILE DUCTS: Unremarkable. PANCREAS: Unremarkable. No gross lesion or ductal dilatation. SPLEEN: Scattered punctate calcifications. ADRENALS: Unremarkable. No mass. KIDNEYS AND URETERS: Punctate nonobstructing right upper pole calculus. No hydronephrosis. Bilateral parapelvic cysts, stable mild nonspecific perinephric stranding No solid mass. VASCULATURE: Unremarkable. No aortic aneurysm. BOWEL: Small hiatal hernia. No obstruction. No gross mural thickening. APPENDIX: Unremarkable. Normal appendix. PERITONEUM: Stable fat containing umbilical hernia. No free fluid. No free air. LYMPH NODES: Unremarkable. No enlarged lymph nodes. BLADDER: Unremarkable. REPRODUCTIVE: Unremarkable. BONES: No acute fracture. OTHER FINDINGS: None. IMPRESSION: Punctate nonobstructive right upper pole calculus. No obstructive urolithiasis or evidence of recently passed genitourinary calculus. Additional stable findings as above. Progress Note: CT Scan, Blood work and UA ordered. Toradol,Oxycodone and IV fluids administered. On re-evaluation sleeping in no distress. Abdomen soft Reassessment Condition: Improved Disposition Counseled Patient/Family Regarding: Studies Performed, Diagnosis, Need For Followup, Rx Given - Disposition Referrals: [facility] [Outside] [facility] [Outside] Disposition: HOME/ ROUTINE Disposition Time: 09:50 Condition: STABLE Additional Instructions: Follow up with PMD for further evaluation Prescriptions: Naproxen [Naprosyn] 1 tab PO BID PRN #25 tab PRN Reason: Pain Instructions: Acute Abdomen (Belly Pain), Adult (DC) Forms: [email or web address] ([place]) - POA Present On Arrival: None - Clinical Impression Clinical Impression: Low back pain, Back pain - 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 - Scribe Statement The provider has reviewed the documentation as recorded by the Keri Mo All medical record entries made by the Liliamiblinsey were at my direction and personally dictated by me. I have reviewed the chart and agree that the record accurately reflects my personal performance of the history, physical exam, medical decision making, and the department course for this patient. I have also personally directed, reviewed, and agree with the discharge instructions and disposition.
[2017-07-28] MEDS ORDERED: Oxycodone/Acetaminophen 5/325 mg Tab ONE (07:35)
[2017-07-28] MEDS ORDERED: Sodium Chloride 0.9% 1,000 ML ONE (07:35)
[2017-07-28] MEDS: Oxycodone/Acetaminophen 5/325 mg Tab PO STA (07:40)
[2017-07-28] MEDS: Sodium Chloride 0.9% 1,000 ML IV ONE (07:40)
[2017-07-28 07:55] LABS: BASO # 0.1 K/uL (0.0-0.2); BASO % 1.3 % (0.0-2.0); EOS # 0.2 K/uL (0.0-0.7); EOS % 2.7 % (0.0-4.0); HEMOGLOBIN 12.4 g/dL (11.0-16.0); LYMPH # 1.8 K/uL (1.0-4.3); LYMPH % 23.5 % (20.0-40.0); MEAN CORPUSCULAR HEMOGLOBIN 30.3 pg (27.0-31.0); MEAN CORPUSCULAR HGB CONC 34.1 g/dL (33.0-37.0); MEAN PLATELET VOLUME 10.2 fL (7.2-11.7); MONO # 0.4 K/uL (0.0-0.8); MONO % 5.2 % (0.0-10.0); NEUT # 5.2 K/uL (1.8-7.0); NEUT % 67.3 % (50.0-75.0); RBC 4.1 Mil/uL (3.80-5.20); RED CELL DISTRIBUTION WIDTH 13.8 % (11.5-14.5); WHITE BLOOD COUNT 7.7 K/uL (4.8-10.8)
[2017-07-28 08:06] LABS: SQUAMOUS EPITHIAL 2 /hpf (0-5); URINE BACTERIA RARE (<OCC); URINE BILIRUBIN NEGATIVE (NEGATIVE); URINE BLOOD NEGATIVE (NEGATIVE); URINE CLARITY Clear (Clear); URINE COLOR Straw (YELLOW); URINE GLUCOSE (UA) 1+ mg/dL (Normal); URINE LEUKOCYTE ESTERASE TRACE Leu/uL (Negative); URINE PROTEIN NEGATIVE (NEGATIVE); URINE UROBILINOGEN NORMAL mg/dL (0.2-1.0)
[2017-07-28 08:25] LABS: AST/SGOT 21 U/L (14-36); BLOOD UREA NITROGEN 10 mg/dL (7-17); GFR AFRICAN-AMERICAN > 60; GFR NON-AFRICAN AMERICAN > 60
[2017-07-28 08:26] LABS: ALT/SGPT 22 U/L (9-52); CALCIUM 9.5 mg/dl (8.6-10.4)
[2017-07-28 08:28] LABS: ALB/GLOB RATIO 1.1 (1.0-2.1); ALBUMIN 3.7 g/dL (3.5-5.0)
--- NOTE | 2017-07-28 09:15 | CT ---
PROCEDURE: CT Abdomen and Pelvis without intravenous contrast HISTORY: Pain COMPARISON: CT scan of the abdomen and pelvis dated 04/27/2017. TECHNIQUE: Contiguous images were obtained from the domes of the diaphragms to the upper thighs without the administration of intravenous contrast. Oral contrast was not administered. Radiation dose: Total exam DLP = 1165.3 mGy-cm. This CT exam was performed using one or more of the following dose reduction techniques: Automated exposure control, adjustment of the mA and/or kV according to patient size, and/or use of iterative reconstruction technique. FINDINGS: LOWER THORAX: Basilar atelectasis. Heart size normal. Coronary arterial and valvular calcifications. LIVER: Scattered hepatic punctate calcification. No gross lesion or ductal dilatation. GALLBLADDER AND BILE DUCTS: Unremarkable. PANCREAS: Unremarkable. No gross lesion or ductal dilatation. SPLEEN: Scattered punctate calcifications. ADRENALS: Unremarkable. No mass. KIDNEYS AND URETERS: Punctate nonobstructing right upper pole calculus. No hydronephrosis. Bilateral parapelvic cysts, stable mild nonspecific perinephric stranding No solid mass. VASCULATURE: Unremarkable. No aortic aneurysm. BOWEL: Small hiatal hernia. No obstruction. No gross mural thickening. APPENDIX: Unremarkable. Normal appendix. PERITONEUM: Stable fat containing umbilical hernia. No free fluid. No free air. LYMPH NODES: Unremarkable. No enlarged lymph nodes. BLADDER: Unremarkable. REPRODUCTIVE: Unremarkable. BONES: No acute fracture. OTHER FINDINGS: None. IMPRESSION: Punctate nonobstructive right upper pole calculus. No obstructive urolithiasis or evidence of recently passed genitourinary calculus. Additional stable findings as above.
[2017-07-28 09:31] VITALS: BP 106/65; PULSE 62; TEMP 97.7
[2017-07-28 10:35] VITALS: RESP 18
== END 2017-07-28 10:25 | disposition home or self-care (01) ==
LOC: C.ER 06:07
DX: M54.5 Low back pain (principal); E78.00 Pure hypercholesterolemia, unspecified; I12.9 Hypertensive chronic kidney disease with stage 1 through stage 4 chronic kidney disease, or unspecified chronic kidney disease; E11.22 Type 2 diabetes mellitus with diabetic chronic kidney disease; N18.9 Chronic kidney disease, unspecified
CPT/HCPCS: 74176; 80053; 81001; 85025; 96361; 96374; 99285; J1885; J7040

== ENCOUNTER 2017-09-08 06:28 | Day surgery (SDC) | payer MEDICARE ==
[2017-09-08] MEDS ORDERED: Propofol 10 mg/ml Inj (20 ML) ONE (09:42)
[2017-09-08] MEDS ORDERED: Lactated Ringer's 500 ML IV SCH (09:45)
[2017-09-08 10:30] VITALS: TEMP 97.4
[2017-09-08 11:06] VITALS: O2SAT 100
[2017-09-08 11:07] VITALS: BP 118/67; PULSE 67; RESP 13
== END 2017-09-08 11:13 | disposition home or self-care (01) ==
LOC: C.ENDO 06:28
PROVIDERS: ATTEND Internal Medicine Gastroenterology
DX: Z12.11 Encounter for screening for malignant neoplasm of colon (principal); D12.3 Benign neoplasm of transverse colon; K57.30 Diverticulosis of large intestine without perforation or abscess without bleeding; K64.8 Other hemorrhoids; E11.9 Type 2 diabetes mellitus without complications; E78.5 Hyperlipidemia, unspecified; I10 Essential (primary) hypertension
CPT/HCPCS: 45385; 82948; 88305; J2704; J3010; J7120

== ENCOUNTER 2018-01-10 06:49 | Emergency (ER) | payer MEDICARE ==
[2018-01-10 07:16] VITALS: TEMP 98.1
[2018-01-10] MEDS ORDERED: Tramadol 25 mg PO STA (07:52)
[2018-01-10] MEDS ORDERED: Tramadol 25 mg ONE (08:07)
--- NOTE | 2018-01-10 08:10 | C.PDOC ---
History Of Present Illness 67 years old female with PMHx of diabetes presents to ED for complaints of 8/10 left arm pain. Patient reports pain occurred after she took the flu shot March of last year and since then has been experiencing the pain. Patient also reports she started experiencing throbbing pain in the bone of the entire left arm that radiated to chest and increases with movement and pressure. 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 Denies shortness of breath, dizziness, nausea, headache, cough, neck pain, fever, chills, or prior history of coronary artery disease. Patient reports taking Tylenol and Advil with no relief, last Advil taken was at 3am today. Time Seen by Provider: 01/10/18 07:13 Chief Complaint (Nursing): Upper Extremity Problem/Injury History Per: Patient History/Exam Limitations: no limitations Onset/Duration Of Symptoms: Days Current Symptoms Are (Timing): Still Present Quality: "Pain" Severity: Severe Pain Scale Rating Of: 8 Exacerbating Factor(s): Strenuous Use Of Affected Area, Movement Recent travel outside of the [place]: No Past Medical History Reviewed: Historical Data, Nursing Documentation, Vital Signs Vital Signs: Last Vital Signs Temp 98.1 F 01/10/18 07:06 Pulse 56 L 01/10/18 08:56 Resp 18 01/10/18 08:56 BP 125/64 01/10/18 08:56 Pulse Ox 96 01/10/18 08:56 - Medical History PMH: Diabetes, HTN, Hypercholesterolemia, Hyperlipidemia, Kidney Stones, Chronic Kidney Disease Surgical History: No Surg Hx Family History: States: Unknown Family Hx - Social History Hx Tobacco Use: No Hx Alcohol Use: No Hx Substance Use: No - Immunization History Hx Tetanus Toxoid Vaccination: Yes Hx Influenza Vaccination: Yes Hx Pneumococcal Vaccination: Yes Review Of Systems Constitutional: Negative for: Fever, Chills Respiratory: Negative for: Cough, Shortness of Breath Gastrointestinal: Negative for: Nausea, Vomiting Musculoskeletal: Positive for: Arm Pain (Left arm that radiates to chest ). Negative for: Neck Pain Neurological: Negative for: Weakness, Numbness, Headache, Dizziness Physical Exam - Physical Exam Appears: Non-toxic, No Acute Distress Skin: Normal Color, Warm, Dry, No Rash Head: Atraumatic, Normacephalic Eye(s): bilateral: Normal Inspection, PERRL, EOMI Oral Mucosa: Moist Neck: Normal ROM, Supple Chest: Symmetrical, Tenderness (On palpation ) Cardiovascular: Rhythm Regular, No Murmur Respiratory: Normal Breath Sounds, No Decreased Breath Sounds, No Rales, No Rhonchi, No Wheezing Gastrointestinal/Abdominal: Bowel Sounds (Active ), Soft, No Tenderness Extremity: Normal ROM, Tenderness (On palpation to left arm ), No Deformity Extremity: Bilateral: Normal Color And Temperature, Normal ROM Neurological/Psych: Oriented x3, Normal Speech, Other (No focal deficits ) Gait: Steady ED Course And Treatment - Laboratory Results Result Diagrams: 01/10/18 08:16 01/10/18 08:16 O2 Sat by Pulse Oximetry: 99 (RA) Pulse Ox Interpretation: Normal Medical Decision Making Medical Decision Making: * Administered Motrin Tab 600mg and Tramadol 25mg. * Ordered EKG, and basic labs. * No significant suspicion of cardiac disease but labs sent as precautionary. EKG: * Normal sinus rhythm at 63 bpm. * No ST elevations or depressions. * * Patient feeling better after medication. Troponin unremarkable Disposition Counseled Patient/Family Regarding: Studies Performed, Diagnosis, Need For Followup, Rx Given - Disposition Disposition: HOME/ ROUTINE Disposition Time: 09:11 Condition: STABLE Additional Instructions: Zara holley doctor. Prescriptions: Ibuprofen [Motrin] 600 mg PO TID #15 tab traMADol [Ultram] 25 mg PO HS #5 tab Instructions: Rotator Cuff Tendinitis Stretching Exercises Forms: Gen Discharge Inst Algerian, [facility] (Algerian), Work Excuse - POA Present On Arrival: None - Clinical Impression Clinical Impression: Arm pain, left - Scribe Statement The provider has reviewed the documentation as recorded by the Keri Thomas All medical record entries made by the Scriblinsey were at my direction and personally dictated by me. I have reviewed the chart and agree that the record accurately reflects my personal performance of the history, physical exam, medical decision making, and the department course for this patient. I have also personally directed, reviewed, and agree with the discharge instructions and disposition.
[2018-01-10 08:25] LABS: BASO % 0.3 % (0.0-2.0); EOS # 0.1 K/uL (0.0-0.7); EOS % 1.9 % (0.0-4.0); HEMOGLOBIN 11.3 g/dL (11.0-16.0); LYMPH # 1.9 K/uL (1.0-4.3); LYMPH % 28.3 % (20.0-40.0); MEAN CELL VOLUME 89.4 fL (81.0-99.0); MEAN CORPUSCULAR HEMOGLOBIN 30.2 pg (27.0-31.0); MEAN CORPUSCULAR HGB CONC 33.8 g/dL (33.0-37.0); MEAN PLATELET VOLUME 10.3 fL (7.2-11.7); MONO # 0.4 K/uL (0.0-0.8); MONO % 6.3 % (0.0-10.0); NEUT # 4.2 K/uL (1.8-7.0); NEUT % 63.2 % (50.0-75.0); RBC 3.76 Mil/uL (3.80-5.20); WHITE BLOOD COUNT 6.7 K/uL (4.8-10.8)
[2018-01-10 08:33] LABS: BLOOD UREA NITROGEN 15 mg/dL (7-17); CALCIUM 9.8 mg/dl (8.6-10.4); GFR NON-AFRICAN AMERICAN > 60
[2018-01-10 08:57] VITALS: BP 125/64; PULSE 56; RESP 18
[2018-01-10 09:13] VITALS: O2SAT 99
--- NOTE | 2018-01-11 11:47 | CARD ---
APPROVED REPORT Date of service: 01/10/2018 EKG Measurement Heart [id number] <Conclusion> Normal sinus rhythm Normal ECG
== END 2018-01-10 09:15 | disposition home or self-care (01) ==
LOC: C.ER 06:49
DX: M79.602 Pain in left arm (principal); E78.00 Pure hypercholesterolemia, unspecified; E11.9 Type 2 diabetes mellitus without complications; I12.9 Hypertensive chronic kidney disease with stage 1 through stage 4 chronic kidney disease, or unspecified chronic kidney disease; N18.9 Chronic kidney disease, unspecified; E78.5 Hyperlipidemia, unspecified

== ENCOUNTER 2018-05-16 09:10 | Emergency (ER) | payer MEDICARE ==
[2018-05-16 09:21] VITALS: RESP 20
[2018-05-16] MEDS ORDERED: Sodium Chloride 0.9% 1,000 ML IV ONE (09:34)
--- NOTE | 2018-05-16 09:40 | C.PDOC ---
History Of Present Illness 67 y/o female, w/PMhx of HTN, hyperlipidemia, and diabetes, presents to the ER for evaluation of abdominal pain, vomiting, and diarrhea which has been present since yesterday. Patient states that she had "2 episodes of vomiting" and multiple episodes of diarrhea. Patient denies having fever, chills, cough, CP, dysuria, hematuria, and bowel/bladder incontinence. Time Seen by Provider: 05/16/18 09:26 Chief Complaint (Nursing): Abdominal Pain History Per: Patient History/Exam Limitations: no limitations Onset/Duration Of Symptoms: Days Current Symptoms Are (Timing): Still Present Severity: Moderate Past Medical History Reviewed: Historical Data, Nursing Documentation, Vital Signs Vital Signs: Last Vital Signs Temp 98.1 F 05/16/18 09:18 Pulse 90 05/16/18 09:18 Resp 20 05/16/18 09:18 BP 115/76 05/16/18 09:18 Pulse Ox 96 05/16/18 09:18 - Medical History PMH: Diabetes, HTN, Hypercholesterolemia, Hyperlipidemia, Kidney Stones, Chronic Kidney Disease Surgical History: No Surg Hx Family History: States: No Known Family Hx - Social History Hx Tobacco Use: No Hx Alcohol Use: Yes Hx Substance Use: No - Immunization History Hx Tetanus Toxoid Vaccination: Yes Hx Influenza Vaccination: Yes (2018) Hx Pneumococcal Vaccination: Yes Review Of Systems Except As Marked, All Systems Reviewed And Found Negative. Constitutional: Negative for: Fever, Chills Cardiovascular: Negative for: Chest Pain Respiratory: Negative for: Cough, Shortness of Breath Gastrointestinal: Positive for: Vomiting, Abdominal Pain, Diarrhea Genitourinary: Negative for: Dysuria, Hematuria Physical Exam - Physical Exam Appears: Non-toxic, No Acute Distress Skin: Normal Color, Warm, Dry Head: Atraumatic, Normacephalic Eye(s): bilateral: Normal Inspection Nose: Normal Oral Mucosa: Moist Neck: Supple Chest: Symmetrical Cardiovascular: Rhythm Regular Respiratory: Normal Breath Sounds, No Rales, No Rhonchi, No Wheezing Gastrointestinal/Abdominal: Soft, Tenderness (mild nonfocal tenderness), No Guarding, No Rebound Neurological/Psych: Oriented x3, Normal Speech ED Course And Treatment - Laboratory Results Result Diagrams: 05/16/18 09:42 05/16/18 10:04 O2 Sat by Pulse Oximetry: 96 (RA) Pulse Ox Interpretation: Normal Medical Decision Making Medical Decision Making: ro colitis gastrits pancreatitis pud Plan: --Labs --UA --Protonix IV --IV Fluids --Zofran IV --Tylenol PO labs neg, pain resolved. pt sleeping in nad. ct shows colitis. pt feels comfortable with dc and strict return precautions. Disposition - Disposition Referrals: [facility] [Outside] [facility] [Outside] Lance Brown MD [Staff Provider] - Disposition: HOME/ ROUTINE Disposition Time: 11:50 Condition: STABLE Additional Instructions: please see specialist [facility] worsneing symptoms or concerns. Prescriptions: Ciprofloxacin HCl [Cipro] 500 mg PO BID #14 tablet Metronidazole [Flagyl] 500 mg PO TID #21 tablet Instructions: Colitis Forms: [facility] (French) - Clinical Impression Clinical Impression: Colitis - Scribe Statement The provider has reviewed the documentation as recorded by the Keri Winston Provider Attestation: All medical record entries made by the Scribe were at my direction and personally dictated by me. I have reviewed the chart and agree that the record accurately reflects my personal performance of the history, physical exam, medi yola decision making, and the department course for this patient. I have also personally directed, reviewed, and agree with the discharge instructions and disposition.
[2018-05-16 09:48] LABS: BASO % 0.4 % (0.0-2.0); EOS # 0.1 K/uL (0.0-0.7); EOS % 1.3 % (0.0-4.0); LYMPH # 0.5 K/uL (1.0-4.3); LYMPH % 9.8 % (20.0-40.0); MEAN CELL VOLUME 91.3 fL (81.0-99.0); MEAN CORPUSCULAR HEMOGLOBIN 30.2 pg (27.0-31.0); MEAN CORPUSCULAR HGB CONC 33.1 g/dL (33.0-37.0); MEAN PLATELET VOLUME 10.6 fL (7.2-11.7); MONO # 0.4 K/uL (0.0-0.8); MONO % 6.5 % (0.0-10.0); NEUT # 4.5 K/uL (1.8-7.0); PLATELET COUNT 196 K/uL (130-400); RBC 4.39 Mil/uL (3.80-5.20); RED CELL DISTRIBUTION WIDTH 13.7 % (11.5-14.5); WHITE BLOOD COUNT 5.4 K/uL (4.8-10.8)
[2018-05-16] MEDS ORDERED: Sodium Chloride 0.9% 1,000 ML ONE (09:48)
[2018-05-16 09:50] LABS: HEMOGLOBIN 13.3 g/dL (11.0-16.0)
[2018-05-16 09:51] LABS: SQUAMOUS EPITHIAL 1 /hpf (0-5); URINE BILIRUBIN NEGATIVE (NEGATIVE); URINE BLOOD 1+ (NEGATIVE); URINE CLARITY Clear (Clear); URINE COLOR Yellow (YELLOW); URINE GLUCOSE (UA) NORMAL (Normal); URINE LEUKOCYTE ESTERASE NEG Leu/uL (Negative); URINE PROTEIN NEGATIVE (NEGATIVE); URINE UROBILINOGEN NORMAL mg/dL (0.2-1.0)
[2018-05-16 09:59] LABS: INR 1.2
[2018-05-16 10:25] LABS: BANDS 9 % (0-2); EOSINOPHIL 1 % (0-4); LYMPHOCYTE 9 % (20-40); MONOCYTE 5 % (0-10); NEUTROPHIL 76 % (50-75); PLATELET ESTIMATE NORMAL (NORMAL); TOTAL CELLS COUNTED 100
[2018-05-16 10:28] LABS: ALB/GLOB RATIO 1.3 (1.0-2.1); ALBUMIN 3.6 g/dL (3.5-5.0); ALT/SGPT 36 U/L (9-52); AST/SGOT 36 U/L (14-36); BLOOD UREA NITROGEN 8 mg/dL (7-17); CALCIUM 8.4 mg/dl (8.6-10.4); GFR NON-AFRICAN AMERICAN > 60; LIPASE 63 U/L (23-300)
[2018-05-16] MEDS ORDERED: Iodixanol 320 MG/ML 100 ML BOTTLE IV ONE (10:59)
[2018-05-16 11:53] VITALS: BP 101/66; PULSE 63; TEMP 98
--- NOTE | 2018-05-16 12:01 | CT ---
Date of service: 05/16/2018 PROCEDURE: CT Abdomen and Pelvis with contrast HISTORY: abd pain, vomiting diarrhea COMPARISON: CT abdomen and pelvis without IV contrast performed 07/28/17 TECHNIQUE: Contrast dose: 100 mL Visipaque 320 IV Radiation dose: Total exam DLP = 1007.63 mGy-cm. This CT exam was performed using one or more of the following dose reduction techniques: Automated exposure control, adjustment of the mA and/or kV according to patient size, and/or use of iterative reconstruction technique. FINDINGS: LOWER THORAX: No visible consolidation, pleural effusion, or pneumothorax. Small hiatal hernia/distal esophageal wall thickening. LIVER: Hypoattenuation of the liver compatible with hepatic steatosis. GALLBLADDER AND BILE DUCTS: Unremarkable. PANCREAS: Unremarkable. SPLEEN: Unremarkable. ADRENALS: Unremarkable. KIDNEYS AND URETERS: The kidneys enhance symmetrically. No hydronephrosis or obstructing calculus identified. Bilateral parapelvic cysts. Right renal cortical cyst similar prior study. Scarring at the right upper pole with trace perinephric fluid. VASCULATURE: No aortic aneurysm. Atherosclerotic calcifications of the aorta. BOWEL: Stomach is nondistended. Lack of oral contrast limits evaluation for bowel pathology. Bowel loops appear within normal limits of caliber without evidence of obstruction. Colonic wall thickening particularly right and proximal transverse colon; correlate for colitis (i.e. Infectious/inflammatory). APPENDIX: The appendix appears within normal limits of caliber. No secondary signs of acute appendicitis. PERITONEUM: No significant free fluid. No definite free air. LYMPH NODES: No bulky adenopathy identified. BLADDER: Unremarkable. REPRODUCTIVE: The uterus is present. BONES: Degenerative changes. OTHER FINDINGS: Fat containing ventral hernia measures approximately 14 mm in transverse dimension. Small fat containing bilateral inguinal hernias. IMPRESSION: Colonic wall thickening particularly right and proximal transverse colon; correlate for colitis (i.e. Infectious/inflammatory). fat containing ventral and bilateral inguinal hernias. Bilateral parapelvic cysts. Right lower pole cyst. Scarring at the right upper pole with trace perinephric fluid. Hypoattenuation of the liver compatible with hepatic steatosis. Additional incidental findings as above.
[2018-05-16 15:38] VITALS: O2SAT 96
== END 2018-05-16 12:22 | disposition home or self-care (01) ==
LOC: C.ER 09:10
DX: K52.9 Noninfective gastroenteritis and colitis, unspecified (principal)
CPT/HCPCS: 74177; 80053; 81001; 83690; 85025; 85610; 85730; 96361; 96374; 96375; 99285; C9113; J2405; J7030; Q9967

== ENCOUNTER 2018-09-07 08:34 | Outpatient (CLI) | payer MEDICARE | END 2018-09-07 08:35 | disposition home or self-care (01) | LOC: C.USIC 08:35 | DX: R10.9 Unspecified abdominal pain (principal) ==